=== PATIENT | female | born 1960 | race Caucasian/White ===

== ENCOUNTER 2017-01-20 09:19 | Emergency (ER) | payer OTHER ==
[2017-01-20 09:30] VITALS: BP 120/69; PULSE 58; RESP 18; TEMP 98.1; O2SAT 97
[2017-01-20] MEDS ORDERED: ACYCLOVIR 400 MG TAB PO ONE (09:33)
[2017-01-20] MEDS ORDERED: predniSONE 20 MG TAB PO ONE (09:33)
--- NOTE | 2017-01-20 09:37 | EDPHY ---
H & P Stated Complaint: Rash to torso X 2 days, itching Time Seen by Provider: 01/20/17 09:28 HPI/ROS: CHIEF COMPLAINT: Shingles HISTORY OF PRESENT ILLNESS: The patient is a 56-year-old female who comes to the emergency department complaining of a rash that developed on her right anterior abdomen and right thoracic back. It is slightly painful and itchy. It is vascular. She has not had a fever. She denies other symptoms. REVIEW OF SYSTEMS: Constitutional: denies: chills, fever, recent illness, recent injury EENTM: denies: blurred vision, double vision, nose congestion Respiratory: denies: cough, shortness of breath Cardiac: denies: chest pain, irregular heart rate, lightheadedness, palpitations Gastrointestinal/Abdominal: denies: abdominal pain, diarrhea, nausea, vomiting, blood streaked stools Genitourinary: denies: dysuria, frequency, hematuria, pain Musculoskeletal: denies: joint pain, muscle pain Skin: See HPI Neurological: denies: headache, numbness, paresthesia, tingling, dizziness, weakness Hematologic/Lymphatic: denies: blood clots, easy bleeding, easy bruising Immunologic/allergic: denies: HIV/AIDS, transplant EXAM: GENERAL: Well-appearing, well-nourished and in no acute distress. HEAD: Atraumatic, normocephalic. EYES: Pupils equal round and reactive to light, extraocular movements intact, sclera anicteric, conjunctiva are normal. ENT: TMs normal, nares patent, oropharynx clear without exudates. Moist mucous membranes. NECK: Normal range of motion, supple without lymphadenopathy or JVD. LUNGS: Breath sounds clear to auscultation bilaterally and equal. No wheezes rales or rhonchi. HEART: Regular rate and rhythm without murmurs, rubs or gallops. ABDOMEN: Soft, nontender, normoactive bowel sounds. No guarding, no rebound. No masses appreciated. BACK: No CVA tenderness, no spinal tenderness, step-offs or deformities EXTREMITIES: Normal range of motion, no pitting or edema. No clubbing or cyanosis. NEUROLOGICAL: Cranial nerves II through XII grossly intact. Normal speech, normal gait. 5/5 strength, normal movement in all extremities, normal sensation PSYCH: Normal mood, normal affect. SKIN: Shingles type lesions to T8 or 9 dermatome on the right . Source: Patient - Personal History LMP (Females 10-55): Hysterectomy Current Tetanus/Diphtheria Vaccine: Yes - Medical/Surgical History Hx Asthma: No Hx Chronic Respiratory Disease: No Hx Diabetes: No Hx Cardiac Disease: No Hx Renal Disease: No Hx Cirrhosis: No Hx Alcoholism: No Hx HIV/AIDS: No Hx Splenectomy or Spleen Trauma: No Other PMH: HTN,HYPERLIPIDEMIA,DEPRESSION,CHOLEY,APPY,HYST. GASTRIC SLEEVE 09/09 - Family History Significant Family History: No pertinent family hx - Social History Smoking Status: Never smoked Alcohol Use: Sober Drug Use: None Constitutional: Initial Vital Signs Temperature (C) 36.7 C 01/20/17 09:25 Heart Rate 58 L 01/20/17 09:25 Respiratory Rate 18 01/20/17 09:25 Blood Pressure 120/69 01/20/17 09:25 O2 Sat (%) 97 01/20/17 09:25 O2 Delivery Mode Room Air Allergies/Adverse Reactions: Penicillins Allergy (Severe, Verified 01/20/17 09:24) Rash Home Medications: Medication Instructions Recorded Abilify 12/11/14 Amlodipine Besylate 12/11/14 SIMVASTATIN 12/11/14 Acyclovir 800 mg PO 5XD #35 tab 01/20/17 predniSONE 60 mg PO DAILY #12 tab 01/20/17 Medical Decision Making ED Course/Re-evaluation: The patient has a classic shingles type rash. I will start her on acyclovir and steroids. She understands and agrees with this plan. We discussed indications for returning in the importance of follow-up. Differential Diagnosis: Partial list of the Differential diagnosis considered include but were not limited to; shingles, cellulitis,urticaria and although unlikely based on the history and physical exam, I also considered sepsis, herpes encephalitis. I discussed these differential diagnoses and the plan with the patient as well as the usual and expected course. The patient understands that the diagnosis is provisional and that in medicine we are not always correct and that further workup is often warranted. Usual and customary warnings were given. All of the patient's questions were answered. The patient was instructed to return to the emergency department should the symptoms at all worsen or return, otherwise to followup with the physician as we discussed. - Data Points Medications Given: Discontinued Medications Acyclovir (Acyclovir) 800 mg PO EDNOW ONE Stop: 01/20/17 09:34 Last Admin: 01/20/17 09:47 Dose: Not Given Prednisone (Prednisone) 60 mg PO EDNOW ONE Stop: 01/20/17 09:34 Last Admin: 01/20/17 09:39 Dose: 60 mg Departure - Departure Disposition: Home, Routine, Self-Care Clinical Impression: Shingles (herpes zoster) polyneuropathy Condition: Fair Instructions: Shingles (ED) Referrals: [facility],. [Primary Care Provider] - As per Instructions Prescriptions: Acyclovir 800 mg PO 5XD #35 tab predniSONE 60 mg PO DAILY #12 tab
== END 2017-01-20 09:46 | disposition home or self-care (01) ==
LOC: CED 09:19
DX: B02.23 Postherpetic polyneuropathy (principal); I10 Essential (primary) hypertension

== ENCOUNTER → 2017-05-09 | Outpatient (CLI) | payer OTHER | LOC: FLAB 15:33 → FIMAGING 15:33 → EDSTATUS 15:37 | PROVIDERS: ATTEND Family Medicine | DX: M17.11 Unilateral primary osteoarthritis, right knee (principal); S83.012A Lateral subluxation of left patella, initial encounter ==